=== PATIENT | female | born 1945 | race African-American/Black ===

== ENCOUNTER 2016-06-20 06:13 | Emergency (ER) | payer MEDICARE ==
[~2016-06-20] VITALS: Ht 160 cm; Wt 81.6 kg
[~2016-06-20 06:13] MED LIST: ASPI81TA9 PO; CALC-98 PO; LOVA20TA2 PO; NIFE60TA12 PO; TRIA1CAP13 PO
[2016-06-20] MEDS ORDERED: IBUPROFEN 400 MG TABLET. PO ONE (07:00)
--- NOTE | 2016-06-20 07:06 | PHYS DOC ---
Past Medical History Past Medical History: High Cholesterol, Hypertension Past Surgical History: Hysterectomy Additional Past Surgical Histo: HYSTERECTOMY 1994 Alcohol Use: None Drug Use: None Adult General Chief Complaint Chief Complaint: MULTIPLE TRAUMA/FALL HPI HPI Patient is a 71 year old female who presents with left low back pain and left shoulder pain after slip and fall last night. She was walking down 3 stairs, and she fell on the third stair (at the bottom). She landed on her buttock and has left low back pain. Her left shoulder hit the rail and she has left lateral shoulder pain. Her pains are achy and moderate and constant and worse with range of motion. She has been ambulatory with steady gait since time of incident. She took Aleve last night for her pain. She denies head injury, neck pain, dizziness, vision changes, numbness, tingling, weakness, abdominal pain, chest pain, dyspnea. Review of Systems Review of Systems Constitutional: Denies fever or chills [] Eyes: Denies change in visual acuity, redness, or eye pain [] HENT: Denies nasal congestion or sore throat [] Respiratory: Denies cough or shortness of breath [] Cardiovascular: No additional information not addressed in HPI [] GI: Denies abdominal pain, nausea, vomiting, bloody stools or diarrhea [] : Denies dysuria or hematuria [] Musculoskeletal: Has back pain and joint pain [] Integument: Denies rash or skin lesions [] Neurologic: Denies headache, focal weakness or sensory changes [] Endocrine: Denies polyuria or polydipsia [] Current Medications Current Medications Current Medications Medications (Trade) Dose Ordered Sig/[facility] Start Time Stop Time Status Last Admin Dose Admin Ibuprofen (Motrin) 400 mg 1X ONCE 06/20/16 07:00 06/20/16 07:01 MA Allergies Allergies Allergies Coded Allergies Type Severity Reaction Last Updated Verified No Known Drug Allergies 09/13/13 No Physical Exam Physical Exam Constitutional: Well developed, well nourished, no acute distress, non-toxic appearance. [] HENT: Normocephalic, atraumatic, bilateral external ears normal, oropharynx moist, nose normal. [] Eyes: PERRLA, EOMI. [] Neck: Normal range of motion, no tenderness, supple. [] Cardiovascular:Heart rate regular rhythm [] Lungs & Thorax: Bilateral breath sounds clear to auscultation [] Abdomen: Bowel sounds normal, soft, no tenderness. [] Skin: Warm, dry, no erythema, no rash. [] Back: No midline spinal or SI tenderness, no CVA tenderness. Has tenderness to left lumbar paraspinal muscles [] Extremities: Left upper extremity with no obvious deformity or discoloration, has tenderness along the lateral aspect of shoulder with no specific bony tenderness, no palpable abnormality, maintains full range of motion at shoulder/ elbow/wrist/hand, equal radial pulses, sensation intact to light touch to axillary/median/radial/ulnar nerves Neurologic: Alert and oriented X 3, normal motor function, normal sensory function, no focal deficits noted. [] Psychologic: Affect normal, judgement normal, mood normal. [] Current Patient Data Vital Signs Vital Signs Date Time Temp Pulse Resp B/P Pulse Ox O2 Delivery O2 Flow Rate FiO2 06/20/16 06:27 98.1 54 20 226/110 97 Room Air 98.1 Radiology/Procedures Radiology/Procedures Left shoulder x-rays interpreted by me with no acute fracture or dislocation Lumbar spine x-rays interpreted by me with no acute osseous abnormality Course & Med Decision Making Course & Med Decision Making Pertinent Labs and Imaging studies reviewed. (See chart for details) Discussed routine care for muscular skeletal injuries. Return precautions given. She understands and agrees with plan. Surinderon Disclaimer Karlene Disclaimer This electronic medical record was generated, in whole or in part, using a voice recognition dictation system. Departure Departure Impression: Primary Impression: Low back pain Additional Impression: Shoulder pain Disposition: 01 HOME, SELF-CARE Condition: STABLE Referrals: UNKNOWN PCP NAME (PCP) Patient Instructions: Musculoskeletal Pain Additional Instructions: Your x-rays did not reveal any broken bones. Take Tylenol or ibuprofen as needed for pain. Follow-up with your primary care doctor. Return for any concerns. Problem Qualifiers Primary Impression: Low back pain Chronicity: acute Back pain laterality: left Sciatica presence: without sciatica Qualified Code: M54.5 - Low back pain Additional Impression: Shoulder pain Laterality: left Chronicity: acute Qualified Code: M25.512 - Pain in left shoulder Arnoldo CASTELLANOS MD Jun 20, 2016 07:06
--- NOTE | 2016-06-20 07:19 | RAD ---
Left shoulder, 3 views, 06/20/2016: History: Left shoulder pain after fall No fracture or dislocation is identified. The bony structures appear demineralized. There is mild degenerative change at the glenohumeral and acromioclavicular articulations. IMPRESSION: No acute bony abnormality is detected.
--- NOTE | 2016-06-20 07:21 | RAD ---
Lumbar spine, 3 views, 06/20/2016: History: Low back pain after a fall The lumbar vertebral heights are well-maintained. There is mild disc space narrowing at L5-S1. There are moderate sclerotic changes involving the facet joints in the lower lumbar spine. Moderate aortic calcific plaquing is present. IMPRESSION: 1. Mild to moderate degenerative change. 2. No acute bony abnormality is detected.
[2016-06-20 08:00] VITALS: BP 201/89
== END 2016-06-20 08:08 | disposition home or self-care (01) ==
LOC: ER 06:13
DX: M54.5 Low back pain (principal); M25.512 Pain in left shoulder; I10 Essential (primary) hypertension; E78.00 Pure hypercholesterolemia, unspecified; Z90.710 Acquired absence of both cervix and uterus; W10.9XXA Fall (on) (from) unspecified stairs and steps, initial encounter; Y93.89 Activity, other specified; Y99.8 Other external cause status; Y92.89 Other specified places as the place of occurrence of the external cause
CPT/HCPCS: 72100; 73030; 99284

== ENCOUNTER → 2016-11-22 | Outpatient (CLI) | payer MEDICARE ==
[~2016-11-22] MED LIST changes: +ASPI-612 PO; -ASPI81TA9 PO
--- NOTE | 2016-11-23 11:21 | RAD ---
DATE: 11/22/2016 EXAM: DIGITAL SCREEN BILAT W/CAD HISTORY: Routine screening COMPARISON: 11/22/2015 This study was interpreted with the benefit of Computerized Aided Detection (CAD). The breast parenchyma is heterogeneously dense, which could reduce sensitivity of mammography. Breast parenchyma level C. FINDINGS: No new or enlarging breast densities are seen. Benign type calcifications are present. No suspicious microcalcifications have developed. IMPRESSION: Stable mammograms without evidence of malignancy. BI-RADS CATEGORY: 2 BENIGN FINDING(S) RECOMMENDED FOLLOW-UP: 12M 12 MONTH FOLLOW-UP PQRS compliance statement: Patient information was entered into a reminder system with a target due date for the next mammogram. Mammography is a sensitive method for finding small breast cancers, but it does not detect them all and is not a substitute for careful clinical examination. A negative mammogram does not negate a clinically suspicious finding and should not result in delay in biopsying a clinically suspicious abnormality. "Our facility is accredited by the [employer] Mammography Program."
== END | disposition home or self-care (01) ==
LOC: MAMMO 14:44
PROVIDERS: ATTEND Family Medicine
DX: Z12.31 Encounter for screening mammogram for malignant neoplasm of breast (principal)
CPT/HCPCS: G0202; 77067

== ENCOUNTER → 2017-02-13 | Day surgery (SDC) | payer MEDICARE ==
[~2017-02-13] MED LIST changes: +HYDROmorphone 2 MG/ML VIAL IV PRN; +IV RINGERS,LACTATED 1000ML 1,000 ML IV SCH; +LIDOCAINE 1% PF 2 ML VIAL. ID PRN; +MIDAZOLAM HCL/PF 5 MG/5 ML VIAL. IV ONE; +MIDAZOLAM HCL/PF 5 MG/5 ML VIAL. ONE; +MORPHINE SULFATE 2 MG/ML DISP.SYRIN. IV PRN; +ONDANSETRON PF 4 MG/2 ML VIAL. IV PRN; +PROCHLORPERAZINE 10 MG/2 ML VIAL. IV PRN; +diphenhydrAMINE 50 MG/ML VIAL IV ONE; +diphenhydrAMINE 50 MG/ML VIAL ONE; +diphenhydrAMINE HCL 25 MG CAPSULE PO ONE; +fentaNYL PF VIAL 100 MCG/2 ML VIAL IV ONE; +fentaNYL PF VIAL 100 MCG/2 ML VIAL IV PRN; +fentaNYL PF VIAL 100 MCG/2 ML VIAL ONE
[2017-02-13 17:07] VITALS: BP 180/74
--- NOTE | 2017-02-14 12:17 | CONS ---
DATE OF CONSULTATION: 02/13/2017 REASON FOR CONSULTATION: History of colonic polyps. HISTORY OF PRESENT ILLNESS: This is a 71-year-old female whose past medical history is significant for hyperlipidemia, hypertension, history of colonic polyps as well as arthritis, status post total abdominal hysterectomy with bilateral salpingo-oophorectomy, 1 para 1, seen for interval colon exam and her last exam was approximately 10 years ago. Bowel habits are regular without diarrhea or constipation, had no bleeding. She is otherwise without additional complaints. PAST MEDICAL HISTORY: Hypertension, hyperlipidemia, osteoarthrosis, status post hysterectomy, 1, para 1. MEDICATIONS: Include aspirin 81 mg daily, lovastatin 20 mg daily, nifedipine 60 mg daily and triamterene/hydrochlorothiazide 1 daily. FAMILY AND SOCIAL HISTORY: Significant for organic heart disease. She is a nondrinker, nonsmoker in the recent past, smoker previously. REVIEW OF SYSTEMS: Per records. PHYSICAL EXAMINATION: GENERAL: Reveals a well-nourished, well-developed -[place] female who is alert, cooperative, in no acute distress. VITAL SIGNS: Temperature 98, pulse 68, respirations 20. HEENT: Normocephalic and atraumatic head. Pupils and extraocular muscles not tested. Sclerae anicteric. NECK: Supple. LUNGS: Clear. CARDIOVASCULAR: Reveals S1, S2 without S3, S4 or appreciable murmur. ABDOMEN: Reveals a soft abdomen, normal bowel sounds without appreciable hepatosplenomegaly. EXTREMITIES: Reveals no cyanosis, clubbing or edema. IMPRESSION: History of colonic polyps, colorectal screening is warranted at this time. Risks and benefits of procedure including risk of perforation, requiring operation have been discussed with the patient who is willing to proceed at this time. I would like to thank ____ for allowing us to consult and participate in the patient's care. SHABBIR GARZA MD DR: RASHAD/kolton JOB#: [id number] / [id number]
--- NOTE | 2017-02-15 13:06 | PATHOLOGY ---
PATHOLOGY REPORT * * * * * * * * FINAL DIAGNOSIS: Colon biopsies, sigmoid colon: - Hyperplastic polyp. (JPM:arsalan; 02/15/2017) COMMENT: Sections of the sigmoid colon biopsy reveal a hyperplastic polyp with two mucosal-associated lymphoid aggregates. There are no adenomatous changes or evidence of malignancy. (JPM:arsalan; 02/15/2017) REPORT ELECTRONICALLY SIGNED BY: Tae Love M.D. DATE/TIME: 02/15/2017 13:05 * * * * * * * * GROSS PATHOLOGY: Received in formalin labeled "Kori Musa, sigmoid polyp," are 2 segments of shin soft tissue measuring 0.4 x 0.2 x 0.2 cm in aggregate dimensions and ranging from 0.2 to 0.2 cm in maximum dimension. The specimen is submitted entirely in cassette A1. (TSD; 02/14/2017) INITIAL CPT CODE(S): A; 31687 Professional services performed [place] [facility] [place] [address] Technical services performed by [facility] at [address] [place] [address]. SPECIMEN(S) RECEIVED: A.Sigmoid polyp CLINICAL HISTORY: History of polyps PATIENT: KORI MUSA /AGE: 105/08/1945 (Age: 71) PATIENT #: [id number] ALT CASE #: SPECIMEN COLLECTION DATE: 02/13/2017 SPECIMEN RECEIVED DATE: 02/14/2017 [facility] - [address] [place] [address] - PHONE: [phone] * * * END OF REPORT * * *
== END | disposition home or self-care (01) ==
LOC: ENDOS 14:26
PROVIDERS: ATTEND Internal Medicine Gastroenterology
DX: Z09 Encounter for follow-up examination after completed treatment for conditions other than malignant neoplasm (principal); Z86.010 Personal history of colon polyps; K64.0 First degree hemorrhoids; E78.00 Pure hypercholesterolemia, unspecified; I10 Essential (primary) hypertension; M19.91 Primary osteoarthritis, unspecified site; F17.200 Nicotine dependence, unspecified, uncomplicated; Z90.710 Acquired absence of both cervix and uterus
CPT/HCPCS: 45380; J1200; J2250; J3010; Q0163; 88305

== ENCOUNTER 2018-03-08 01:50 | Emergency (ER) | payer MEDICARE, OTHER ==
[~2018-03-08] VITALS: Ht 160 cm; Wt 83.0 kg
[~2018-03-08 01:50] MED LIST changes: -HYDROmorphone 2 MG/ML VIAL IV PRN; -IV RINGERS,LACTATED 1000ML 1,000 ML IV SCH; -LIDOCAINE 1% PF 2 ML VIAL. ID PRN; -MIDAZOLAM HCL/PF 5 MG/5 ML VIAL. IV ONE; -MIDAZOLAM HCL/PF 5 MG/5 ML VIAL. ONE; -MORPHINE SULFATE 2 MG/ML DISP.SYRIN. IV PRN; -ONDANSETRON PF 4 MG/2 ML VIAL. IV PRN; -PROCHLORPERAZINE 10 MG/2 ML VIAL. IV PRN; -diphenhydrAMINE 50 MG/ML VIAL IV ONE; -diphenhydrAMINE 50 MG/ML VIAL ONE; -diphenhydrAMINE HCL 25 MG CAPSULE PO ONE; -fentaNYL PF VIAL 100 MCG/2 ML VIAL IV ONE; -fentaNYL PF VIAL 100 MCG/2 ML VIAL IV PRN; -fentaNYL PF VIAL 100 MCG/2 ML VIAL ONE
[2018-03-08 01:58] VITALS: BP 180/74
[2018-03-08] MEDS ORDERED: AMOX500T PO (02:53)
[2018-03-08] MEDS ORDERED: BENZ1LOZ48 MM (02:53)
--- NOTE | 2018-03-08 02:53 | PHYS DOC ---
Past Medical History Past Medical History: High Cholesterol, Hypertension Past Surgical History: Hysterectomy Additional Past Surgical Histo: HYSTERECTOMY 1994 Smokin Pack Per Day Additional Information: Patient counseled greater than 3 minutes regarding smoking cessation Alcohol Use: None Drug Use: None Adult General Chief Complaint Chief Complaint: SORE THROAT HPI HPI Patient is a 72 year old female who presents with sore throat. The symptoms started 4 days ago and has been getting worse over time. Patient woke up approximately midnight today feeling like she had difficulty swallowing. Patient is able to swallow liquids and solids. She also noted some right ear discomfort. Patient denies any fever. Denies any neck stiffness. Denies any recent changes in weight. Reports having a hoarser than usual voice. Patient is taken no pain medicines. Nothing seems to make the discomfort better or worse. Patient reports that as moderate in intensity.[] Review of Systems Review of Systems Constitutional: Denies fever or chills [] Eyes: Denies change in visual acuity, redness, or eye pain [] HENT: Patient reports sinus congestion[] Respiratory: Denies cough or shortness of breath [] Cardiovascular: No chest pain or palpitations[] GI: Denies abdominal pain, nausea, vomiting, bloody stools or diarrhea [] : Denies dysuria or hematuria [] Musculoskeletal: Denies back pain or joint pain [] Integument: Denies rash or skin lesions [] Neurologic: Denies headache, focal weakness or sensory changes [] Endocrine: Denies polyuria or polydipsia [] All other systems were reviewed and found to be within normal limits, except as documented in this note. Current Medications Current Medications Current Medications Medications (Trade) Dose Ordered Sig/[facility] Start Time Stop Time Status Last Admin Dose Admin Throat Lozenges (Cepacol Sore Throat Lozenge) 1 ye 1X ONCE 03/08/18 03:00 03/08/18 03:01 Allergies Allergies Allergies Coded Allergies Type Severity Reaction Last Updated Verified No Known Drug Allergies 02/13/17 No Physical Exam Physical Exam Constitutional: Well developed, well nourished, no acute distress, non-toxic appearance. [] HENT: Normocephalic, atraumatic, bilateral external ears normal, oropharynx moist, positive oral exudates, nose normal. [] Eyes: PERRLA, EOMI, conjunctiva normal, no discharge. [] Neck: Normal range of motion, no tenderness, supple, no stridor. Anterior chain cervical lymphadenopathy present[] Cardiovascular:Heart rate regular rhythm, no murmur [] Lungs & Thorax: Bilateral breath sounds clear to auscultation [] Abdomen: Examined[] Skin: Warm, dry, no erythema, no rash. [] Back: No tenderness, no CVA tenderness. [] Extremities: No tenderness, no cyanosis, no clubbing, ROM intact, no edema. [] Neurologic: Alert and oriented X 3, normal motor function, normal sensory function, no focal deficits noted. [] Psychologic: Affect normal, judgement normal, mood normal. [] Current Patient Data Vital Signs Vital Signs Date Time Temp Pulse Resp B/P (MAP) Pulse Ox O2 Delivery O2 Flow Rate FiO2 03/08/18 01:58 97.5 52 14 180/74 (109) 96 Room Air 97.5 EKG EKG [] Radiology/Procedures Radiology/Procedures [] Course & Med Decision Making Course & Med Decision Making Pertinent Labs and Imaging studies reviewed. (See chart for details) No evidence of epiglottitis nor asteroid otitis. Nontoxic patient. No evidence of inability to tolerate liquids.[] Dragon Disclaimer Dragon Disclaimer This electronic medical record was generated, in whole or in part, using a voice recognition dictation system. Departure Departure Impression: Primary Impression: Acute pharyngitis Disposition: 01 HOME, SELF-CARE Condition: GOOD Referrals: CLAIRE ARCINIEGA MD (PCP) Follow-up in 2 days Patient Instructions: Viral and Bacterial Pharyngitis Additional Instructions: Drink plenty of fluids. Follow-up with your regular doctor in 2 days. Return to the ER if worsening pain, inability to swallow, or any other concerns. Scripts Benzocaine/Menthol (CEPACOL SORE THROAT LOZENGE) 1 Each Lozenge 1 EACH MM Q3HRS, #30 LOZENGE Prov: JAROD RODRIGUEZ DO 03/08/18 Amoxicillin (AMOXICILLIN) 500 Mg Tablet 500 MG PO TID, #30 TAB 0 Refills Prov: JAROD RODRIGUEZ DO 03/08/18 Problem Qualifiers Primary Impression: Acute pharyngitis Pharyngitis/tonsillitis etiology: unspecified etiology Qualified Codes: J02.9 - Acute pharyngitis, unspecified JAROD RODRIGUEZ DO Mar 08, 2018 02:53
[2018-03-08] MEDS ORDERED: BENZOCAINE/MENTHOL LOZENGE. PO ONE (03:00)
== END 2018-03-08 03:00 | disposition home or self-care (01) ==
LOC: ER 01:50
DX: J02.9 Acute pharyngitis, unspecified (principal); R49.0 Dysphonia; R59.0 Localized enlarged lymph nodes; H93.8X1 Other specified disorders of right ear; E78.00 Pure hypercholesterolemia, unspecified; I10 Essential (primary) hypertension; F17.200 Nicotine dependence, unspecified, uncomplicated
CPT/HCPCS: 99283

== ENCOUNTER → 2019-11-27 | Outpatient (CLI) | payer OTHER ==
[~2019-11-27] MED LIST changes: +AMOX500T PO; +BENZ1LOZ48 MM
--- NOTE | 2019-11-27 10:22 | CARD ---
MR#: [id number] Date of Study: 11/27/2019 Ordering Physician: SUSANA DELGADO, Referring Physician: SUSANA DELGADO, Tech: Ashlie Higginbotham [facility] APPROVED REPORT EXAM: Two-dimensional and M-mode echocardiogram with Doppler and color Doppler. Other Information Quality : Good INDICATION Murmur 2D DIMENSIONS RVDd2.8 (2.9-3.5cm)Left Atrium(2D)4.0 (1.6-4.0cm) IVSd1.2 (0.7-1.1cm)Aortic Root(2D)2.5 (2.0-3.7cm) LVDd4.4 (3.9-5.9cm)LVOT Diameter2.0 (1.8-2.4cm) PWd1.0 (0.7-1.1cm)LVDs1.9 (2.5-4.0cm) FS (%) 30.0 %SV77.3 ml LVEF(%)60.0 (>50%) Aortic Valve AoV Peak Jeevan.173.5cm/sAoV VTI47.4cm AO Peak GR.12.0mmHgLVOT Peak Jeevan.173.5cm/s AO Mean GR.8mmHgAVA (VMAX)3.05cm2 JAXON (VTI)2.60cm2 Mitral Valve MV E Zfeucnxo43.1cm/sMV DECEL RMGN103bk MV A Mogzlndn254.6cm/sE/A Ratio0.5 Tricuspid Valve TR P. Puodonnp357eh/sRAP ADMEINRL1kpGj TR Peak Gr.80fbIhNACC44wfBw Pulmonary Vein S1 Ceniginf290.2cm/sD2 Rpjfhkzp97.5cm/s LEFT VENTRICLE The left ventricle is normal size. There is mild concentric left ventricular hypertrophy. The left ve ntricular systolic function is normal and the ejection fraction is within normal range. The Ejection Fraction is 65-70%. There is normal LV segmental wall motion. Transmitral Doppler flow pattern is Gra de I-abnormal relaxation pattern. RIGHT VENTRICLE The right ventricle is normal size. The right ventricular systolic function is normal. ATRIA The left atrium is mildly dilated. The right atrium size is normal. The interatrial septum is intact with no evidence for an atrial septal defect or patent foramen ovale as noted on 2-D or Doppler imagi ng. AORTIC VALVE The aortic valve is calcified but opens well. Doppler and Color Flow revealed no significant aortic r egurgitation. There is no significant aortic valvular stenosis. 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 MITRAL VALVE The mitral valve is calcified but opens well. Mitral annular calcification is mild. There is no evide nce of mitral valve prolapse. There is no mitral valve stenosis. Doppler and Color Flow revealed no m itral valve regurgitation noted. TRICUSPID VALVE The tricuspid valve is normal in structure and function. Doppler and Color Flow revealed trace to mil d tricuspid regurgitation. There is moderate pulmonary hypertension. The PA pressure was estimated at 46 mmHg. There is no tricuspid valve stenosis. PULMONIC VALVE The pulmonary valve is normal in structure and function. Doppler and Color Flow revealed trace pulmon ic valvular regurgitation. There is no pulmonic valvular stenosis. GREAT VESSELS The aortic root is normal in size. The ascending aorta is normal in size. The IVC is normal in size a nd collapses >50% with inspiration. PERICARDIAL EFFUSION There is a trace circumferential pericardial effusion. Critical Notification Critical Value: No <Conclusion> The left ventricular systolic function is normal and the ejection fraction is within normal range. Th e Ejection Fraction is 65-70%. There is normal LV segmental wall motion. There is no significant aortic valvular stenosis. There is septal buldge and hyperdynamic left ventri juana creating a left ventricular outflow tract obstruction with a peak of 44 mmHg during valvalva albertina uver. Signed by : Jose Fabian, Electronically Approved : 11/27/2019 10:21:28
== END | disposition home or self-care (01) ==
LOC: ECHO 08:34
PROVIDERS: ATTEND Internal Medicine Cardiovascular Disease
DX: I08.3 Combined rheumatic disorders of mitral, aortic and tricuspid valves (principal); I27.20 Pulmonary hypertension, unspecified
CPT/HCPCS: 93306

== ENCOUNTER → 2019-12-15 | Outpatient (CLI) | payer MEDICARE, OTHER ==
[~2019-12-15] MED LIST changes: -ASPI-612 PO; +ASPI-886 PO
--- NOTE | 2019-12-15 17:44 | RAD ---
EXAM: BILATERAL DIGITAL 3D SCREENING MAMMOGRAPHY. HISTORY: Routine mammographic screening. TECHNIQUE: Bilateral digital 3D and tomographic images were obtained in CC and MLO projections. Computer-aided detection was applied. COMPARISON: 11/22/2016. COMPOSITION: C. The breasts are heterogeneously dense, which may obscure small masses. FINDINGS: There are no suspicious masses, microcalcifications or architectural distortion. The parenchymal pattern is stable. Vascular calcifications are benign. BI-RADS CATEGORY 2: Benign. RECOMMENDATION: 1. Routine screening mammography in one year. If mammography demonstrates dense breast tissue (heterogenously dense or extremely dense, category C or D), which could hide abnormalities, and if other risk factors for breast cancer have been identified, supplemental screening tests that may be suggested by the ordering physician may be of benefit. Dense breast tissue, in and of itself, is a relatively common condition. Therefore, this information is not provided to cause undue concern, but rather to raise awareness and to promote discussion with the referring physician regarding the presence of other risk factors, in addition to dense breast tissue. The results of this mammography examination is provided to the patient and referring physician. The patient should contact their referring physician if any questions or concerns exist regarding this report. PQRS compliance statement - Patient information was entered into a reminder system with a target due date for the next mammogram. "Our facility is accredited by the [employer] Mammography Program." Electronically signed by: Lyndon Shearer MD (12/15/2019 5:42 PM) [id number]
== END | disposition home or self-care (01) ==
LOC: MAMMO 08:12
PROVIDERS: ATTEND Family Medicine
DX: Z12.31 Encounter for screening mammogram for malignant neoplasm of breast (principal); N64.89 Other specified disorders of breast
CPT/HCPCS: 77063; 77067

== ENCOUNTER → 2020-12-13 | Outpatient (CLI) | payer OTHER ==
--- NOTE | 2020-12-13 18:13 | KCIC ---
EXAM: BILATERAL DIGITAL 3D SCREENING MAMMOGRAPHY. HISTORY: Routine mammographic screening. TECHNIQUE: Bilateral digital 3D and tomographic images were obtained in CC and MLO projections. Compu ter-aided detection was applied. COMPARISON: Dating back to 11/22/2016 COMPOSITION: C. The breasts are heterogeneously dense, which may obscure small masses. FINDINGS: There are no suspicious masses, microcalcifications or architectural distortion. The parenc hymal pattern is stable. Vascular calcifications are benign. BI-RADS CATEGORY 2: Benign. RECOMMENDATION: 1. Routine screening mammography in one year. If mammography demonstrates dense breast tissue (heterogenously dense or extremely dense, category C or D), which could hide abnormalities, and if other risk factors for breast cancer have been identifi ed, supplemental screening tests that may be suggested by the ordering physician may be of benefit. D ense breast tissue, in and of itself, is a relatively common condition. Therefore, this information i s not provided to cause undue concern, but rather to raise awareness and to promote discussion with t he referring physician regarding the presence of other risk factors, in addition to dense breast tiss ue. The results of this mammography examination is provided to the patient and referring physician. T he patient should contact their referring physician if any questions or concerns exist regarding this report. PQRS compliance statement - Patient information was entered into a reminder system with a target due date for the next mammogram. "Our facility is accredited by the [employer] Mammography Program." Electronically signed by: Ranulfo Vu DO (12/13/2020 6:11 PM) [id number]
== END ==
LOC: KCIC MAMMO 11:06
PROVIDERS: ATTEND Family Medicine
DX: Z12.31 Encounter for screening mammogram for malignant neoplasm of breast (principal)
CPT/HCPCS: 77063; 77067

== ENCOUNTER → 2021-02-02 | Outpatient (CLI) | payer MEDICARE, OTHER ==
--- NOTE | 2021-02-02 10:45 | RAD ---
EXAM: Carotid Doppler sonogram. HISTORY: Carotid bruit. Atherosclerosis. TECHNIQUE: Huynh scale and color Doppler sonographic evaluation of the neck with spectral waveform janusz lysis was performed and static images are submitted for review. FINDINGS: There is intimal thickening involving the common carotid arteries. There is partially calci fied atherosclerotic plaque involving the proximal bilateral internal carotid arteries and left exter nal carotid artery. The peak systolic velocity within the right common carotid artery is 117 cm/sec. The peak systolic ve locity within the right internal carotid artery is 99 cm/sec and the end diastolic velocity within th e right internal carotid artery is 23 cm/sec. The right ICA/CCA ratio is 0.95. The peak systolic velocity within the left common carotid artery is 102 cm/sec. The peak systolic gerri ocity within the left internal carotid artery is 112 cm/sec and the end diastolic velocity within the left internal carotid artery is 30 cm/sec. The left ICA/CCA ratio is 1.13. There is normal antegrade flow within both vertebral arteries. IMPRESSION: Doppler findings consistent with less than 50 percent stenosis involving the internal car otid arteries. PQRS Compliance Statement - Stenosis calculations for CT, MR and conventional angiography are based u wilian measurement of the distal ICA diameter in accordance with the NASCET methodology. Stenosis calcu lations for carotid ultrasound studies are derived from validated velocity criteria which are known t o correlate with the NASCET methodology. Electronically signed by: Leatha Craig MD (02/02/2021 10:43 AM) [id number]
== END ==
LOC: US 10:06
PROVIDERS: ATTEND Internal Medicine Cardiovascular Disease
DX: R09.89 Other specified symptoms and signs involving the circulatory and respiratory systems (principal)
CPT/HCPCS: 93880